=== PATIENT | female | born 1970 | race American Indian/Alaskan Native ===

== ENCOUNTER 2018-01-06 14:54 | Emergency (ER) | payer MEDICAID ==
[2018-01-06 15:14] VITALS: BMI 23.3
--- NOTE | 2018-01-06 15:34 | ED PDOC ---
Arrival/HPI - General Chief Complaint: Chest Pain Time Seen by Provider: 01/06/18 15:22 Historian: Patient - History of Present Illness Narrative History of Present Illness (Text): 01/06/18 15:26 A 47 year old female, whose past medical history includes hypertension, presents to the emergency department complaining of chest pain and elevated blood pressure beginning yesterday. Patient reports chest pain is localized "behind left breast". States she works in [employer] and lifts boxes, believing that may have caused chest pain. Patient denies any shortness of breath or any other complaints at this time. PMD: Dr. Richard Santos Past Medical History - Provider Review Nursing Documentation Reviewed: Yes - Cardiac Hx Cardiac Disorders: Yes Hx Hypertension: Yes - Pulmonary Hx Respiratory Disorders: Yes Hx Asthma: Yes - Psychiatric Hx Substance Use: No Family/Social History - Physician Review Nursing Documentation Reviewed: Yes Family/Social History: No Known Family HX Smoking Status: Never Smoked Hx Alcohol Use: No Hx Substance Use: No Allergies/Home Meds Allergies/Adverse Reactions: Allergies No Known Allergies Allergy (Verified 01/06/18 15:12) Home Medications: Home Meds Medication Instructions Recorded Confirmed amLODIPine [Norvasc] 2.5 mg PO DAILY 01/06/18 01/06/18 Review of Systems - Physician Review All systems were reviewed & negative as marked: Yes - Review of Systems Constitutional: absent: Fevers Respiratory: absent: SOB Cardiovascular: Chest Pain Physical Exam Vital Signs Reviewed: Yes Vital Signs Temp Pulse Resp BP Pulse Ox 01/06/18 17:12 72 17 156/94 H 99 01/06/18 17:10 98.2 F 74 18 158/94 H 98 01/06/18 15:16 98.4 F 79 18 166/100 H 100 01/06/18 15:13 78 17 169/109 H 100 Temperature: Afebrile Blood Pressure: Hypertensive Pulse: Regular Respiratory Rate: Normal Appearance: Positive for: Well-Appearing Pain Distress: None Mental Status: Positive for: Alert and Oriented X 3 - Systems Exam Head: Present: Atraumatic, Normocephalic Pupils: Present: PERRL Extroacular Muscles: Present: EOMI Conjunctiva: Present: Normal Mouth: Present: Moist Mucous Membranes Neck: Present: Normal Range of Motion Respiratory/Chest: Present: Clear to Auscultation, Good Air Exchange. No: Respiratory Distress, Accessory Muscle Use Cardiovascular: Present: Regular Rate and Rhythm, Normal S1, S2. No: Murmurs Abdomen: No: Tenderness, Distention, Peritoneal Signs Back: Present: Normal Inspection Upper Extremity: Present: Normal Inspection. No: Cyanosis, Edema Lower Extremity: Present: Normal Inspection. No: Edema Neurological: Present: GCS=15, CN II-XII Intact, Speech Normal Skin: Present: Warm, Dry, Normal Color. No: Rashes Psychiatric: Present: Alert, Oriented x 3, Normal Insight, Normal Concentration Medical Decision Making ED Course and Treatment: 01/06/18 15:30 Impression: 47 year old female with chest pain and elevated blood pressure. Physical exam is benign. atypical pain, pt herself states it "feels like msucle " Plan: -- EKG -- Chest X-ray -- Labs -- Urinalysis -- Reassess and disposition Progress Notes: EKG: Ordered, reviewed, and independently interpreted the EKG. Rate : 72 BPM Rhythm : NSR Interpretation : No ST-segment elevations or depressions, no T-wave inversions, normal intervals. Comparison : No previous EKG for comparison. 01/06/2018 16:32 Chest X-ray IMPRESSION: No active disease. Dictator: Jeramie Ware MD 01/06/18 20:52 pt refuses admission, atypical pain heart score low. pt asking for dc. - Lab Interpretations Microbiology Results: Microbiology Results 01/06/18 21:32 Urine,Clean Catch Urine Culture - Final No Growth (<1,000 CFU/ML) Lab Results: 01/06/18 15:30 01/06/18 15:30 Lab Results 01/06/18 15:30: Sodium 144, Potassium 4.1, Chloride 107, Carbon Dioxide 25, Anion Gap 16, BUN 13, Creatinine 0.7, Est GFR ( Amer) > 60, Est GFR (Non- Af Amer) > 60, Random Glucose 96, Calcium 9.7, Magnesium 1.9, Total Bilirubin 0.4, AST 41 H, ALT 47, Alkaline Phosphatase 75, Lactate Dehydrogenase 603, Total Creatine Kinase 182, Troponin I < 0.01, Total Protein 9.0 H, Albumin 4.6, Globulin 4.4, Albumin/Globulin Ratio 1.1 01/06/18 15:30: Urine Color Yellow, Urine Appearance Clear, Urine pH 6.0, Ur Specific [place] 1.010, Urine Protein Negative, Urine Glucose (UA) Negative, Urine Ketones Negative, Urine Blood Negative, Urine Nitrate Negative, Urine Bilirubin Negative, Urine Urobilinogen 0.2, Ur Leukocyte Esterase Small H, Urine RBC 0 - 2, Urine WBC 2 - 5, Ur Epithelial Cells 4 - 5, Urine Bacteria Few , Urine HCG, Qual Negative 01/06/18 15:30: PT 10.5, INR 0.92 L, APTT 28.1 01/06/18 15:30: WBC 5.5, RBC 4.52, Hgb 12.2, Hct 37.2, MCV 82.3, MCH 27.0, MCHC 32.8, RDW 12.7, Plt Count 224, MPV 8.3, Gran % 30.6 L, Lymph % (Auto) 54.6 H, Benson % (Auto) 7.1 H, Eos % (Auto) 7.3 H, Baso % (Auto) 0.4, Gran # 1.68, Lymph # (Auto) 3.0, Benson # (Auto) 0.4, Eos # (Auto) 0.4, Baso # (Auto) 0.02 I have reviewed the lab results: Yes - RAD Interpretation Radiology Orders: 01/06/18 15:30 CHEST PORTABLE [RAD] Stat - Medication Orders Current Medication Orders: Discontinued Medications Aspirin (Aspirin) 325 mg PO STAT STA Stop: 01/06/18 16:14 Last Admin: 01/06/18 16:44 Dose: 325 mg - Scribe Statement The provider has reviewed the documentation as recorded by the Samm Mayberry Provider Scribe Attestation: All medical record entries made by the Samm were at my direction and personally dictated by me. I have reviewed the chart and agree that the record accurately reflects my personal performance of the history, physical exam, medical decision making, and the department course for this patient. I have also personally directed, reviewed, and agree with the discharge instructions and disposition. Disposition/Present on Arrival - Present on Arrival Any Indicators Present on Arrival: No History of DVT/PE: No History of Uncontrolled Diabetes: No Urinary Catheter: No History of Decub. Ulcer: No History Surgical Site Infection Following: None - Disposition Have Diagnosis and Disposition been Completed?: Yes Diagnosis: Chest pain Disposition: HOME/ ROUTINE Disposition Time: 05:00 Condition: STABLE Discharge Instructions (ExitCare): Chest Pain, Chest Pain (ED) Additional Instructions: please follow up with your doctor. return to er with worsening symptoms or concerns. you are declining observation in the hospital, however you are able to return to er with any worsening symptoms or concerns. Referrals: [facility] [Outside] - Follow up with primary [facility] [Outside] - Follow up with primary [facility] [Outside] - Follow up with primary Vilma West MD [Staff Provider] - Follow up with primary Richard Santos Jr., MD [Primary Care Provider] - Follow up with primary Forms: [employer] (Hungarian)
[2018-01-06 16:01] LABS: BASO # 0.02 K/mm3 (0.0-2.0); BASO % 0.4 % (0.0-3.0); EOS # 0.4 (0.0-0.7); EOS % 7.3 % (1.5-5.0); GRAN # 1.68 (1.4-6.5); GRAN % 30.6 % (50.0-68.0); HEMOGLOBIN 12.2 g/dL (12.0-16.0); LYMPH % 54.6 % (22.0-35.0); MEAN CELL VOLUME 82.3 fl (80.0-105.0); MEAN CORPUSCULAR HGB CONC 32.8 g/dl (31.0-37.0); MEAN PLATELET VOLUME 8.3 fl (7.0-11.0); MONO # 0.4 (0.1-0.6); MONO % 7.1 % (1.0-6.0); RBC 4.52 10^6/uL (3.5-6.1); RED CELL DISTRIBUTION WIDTH 12.7 % (11.5-14.5); URINE BILIRUBIN NEGATIVE (NEGATIVE); URINE BLOOD NEGATIVE (NEGATIVE); URINE GLUCOSE (UA) NEGATIVE (NEGATIVE); URINE LEUKOCYTE ESTERASE SMALL Leu/uL (NEGATIVE); URINE PROTEIN NEGATIVE mg/dL (<30 mg/dL); URINE UROBILINOGEN 0.2 E.U./dL (<1 E.U./dL); WHITE BLOOD COUNT 5.5 10^3/ul (4.5-11.0)
[2018-01-06 16:04] LABS: URINE COLOR YELLOW (YELLOW)
[2018-01-06 16:05] LABS: URINE APPEARANCE CLEAR (CLEAR)
[2018-01-06 16:12] LABS: ALB/GLOB RATIO 1.1 (1.1-1.8); ALBUMIN 4.6 g/dL (3.0-4.8); ALT/SGPT 47 U/L (7-56); AST/SGOT 41 U/L (14-36); BLOOD UREA NITROGEN 13 mg/dL (7-21); CALCIUM 9.7 mg/dL (8.4-10.5); GFR AFRICAN-AMERICAN > 60; GFR NON-AFRICAN AMERICAN > 60
[2018-01-06 16:14] LABS: URINE RBC 0 - 2 /hpf (0-2)
[2018-01-06 16:15] LABS: HCG,QUALITATIVE URINE NEGATIVE (NEGATIVE); URINE BACTERIA FEW (NEG)
[2018-01-06 16:16] LABS: PROTHROMBIN TIME 10.5 SECONDS (9.4-12.5)
[2018-01-06 16:17] LABS: INR 0.92 (0.93-1.08); PARTIAL THROMBOPLASTIN TIME 28.1 Seconds (25.1-36.5)
[2018-01-06 16:23] LABS: TROPONIN I < 0.01 ng/mL
--- NOTE | 2018-01-06 16:34 | RAD ---
HISTORY: Chest pain. COMPARISON: No prior. FINDINGS: LUNGS: No active pulmonary disease. PLEURA: No significant pleural effusion identified, no pneumothorax apparent. CARDIOVASCULAR: No radiographic findings to suggest acute or significant cardiovascular disease. OSSEOUS STRUCTURES: No significant abnormalities. VISUALIZED UPPER ABDOMEN: Normal. OTHER FINDINGS: None. IMPRESSION: No active disease.
[2018-01-06 17:10] VITALS: TEMP 98.2
[2018-01-06 17:26] VITALS: BP 156/94; PULSE 72; RESP 17; O2SAT 99
--- NOTE | 2018-01-07 09:04 | CARD ---
APPROVED REPORT EKG Measurement Heart [id number] CT 148P75 [id number] <Conclusion> Normal sinus rhythm Voltage criteria for left ventricular hypertrophy J-point elevations 2,3,F, V 5, 6 c/w early repolarization
== END 2018-01-06 17:12 | disposition home or self-care (01) ==
LOC: ED 14:54
DX: R07.9 Chest pain, unspecified (principal); I10 Essential (primary) hypertension

== ENCOUNTER 2018-11-12 12:40 | Emergency (ER) | payer MEDICAID ==
[2018-11-12 12:40] VITALS: BMI 23.3
[2018-11-12 12:54] VITALS: RESP 18; TEMP 99.2
--- NOTE | 2018-11-12 13:14 | ED PDOC ---
Arrival/HPI - General Chief Complaint: Back Pain Historian: Patient - History of Present Illness Narrative History of Present Illness (Text): 11/12/18 13:11 48 y/o female, pmh including htn, nkda, post menopausal, c/o rt. lower back pain x 2 days with no fall or trauma. Pt. 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 Past Medical History - Provider Review Nursing Documentation Reviewed: Yes - Infectious Disease Hx of Infectious Diseases: None - Reproductive Menopause: Yes - Cardiac Hx Cardiac Disorders: Yes Hx Hypertension: Yes - Pulmonary Hx Respiratory Disorders: Yes Hx Asthma: Yes - Psychiatric Hx Substance Use: No Family/Social History - Physician Review Nursing Documentation Reviewed: Yes Family/Social History: Unknown Family HX Smoking Status: Never Smoked Hx Alcohol Use: No Hx Substance Use: No Allergies/Home Meds Allergies/Adverse Reactions: Allergies No Known Allergies Allergy (Verified 01/06/18 15:12) Home Medications: Home Meds Medication Instructions Recorded Confirmed amLODIPine [Norvasc] 2.5 mg PO DAILY 01/06/18 01/06/18 Review of Systems - Review of Systems Constitutional: absent: Fatigue, Fevers Eyes: absent: Vision Changes ENT: absent: Hearing Changes Respiratory: absent: SOB, Cough Cardiovascular: absent: Chest Pain Gastrointestinal: absent: Abdominal Pain, Nausea, Vomiting Musculoskeletal: Back Pain. absent: Arthralgias, Neck Pain, Joint Swelling, Myalgias Skin: absent: Rash, Pruritis Neurological: absent: Headache, Dizziness Psychiatric: absent: Anxiety, Depression, Suicidal Ideation Physical Exam Vital Signs Reviewed: Yes Vital Signs Temp Pulse Resp BP Pulse Ox 11/12/18 12:50 99.2 F 92 H 18 140/72 99 Temperature: Afebrile Blood Pressure: Normal Pulse: Regular Respiratory Rate: Normal Appearance: Positive for: Well-Appearing, Non-Toxic, Comfortable Pain Distress: Moderate Mental Status: Positive for: Alert and Oriented X 3 - Systems Exam Head: Present: Atraumatic, Normocephalic Pupils: Present: PERRL Extroacular Muscles: Present: EOMI Conjunctiva: Present: Normal Mouth: Present: Moist Mucous Membranes Neck: Present: Normal Range of Motion Respiratory/Chest: Present: Clear to Auscultation, Good Air Exchange. No: Respiratory Distress, Accessory Muscle Use Cardiovascular: Present: Regular Rate and Rhythm, Normal S1, S2. No: Murmurs Abdomen: No: Tenderness, Distention, Peritoneal Signs Back: Present: Normal Inspection, Other (LS spine: +ttp on the rt. paraspinal muscle region, no midline tenderness or step off, no cva tenderness, no rash, FROM without limitation, sensation intact, motor 5/5, no saddling gait. ). No: CVA Tenderness, Midline Tenderness, Pain with Leg Raise, Decubitus Ulcer Upper Extremity: Present: Normal Inspection. No: Cyanosis, Edema Lower Extremity: Present: Normal Inspection. No: Edema Neurological: Present: GCS=15, CN II-XII Intact, Speech Normal Skin: Present: Warm, Dry, Normal Color. No: Rashes Psychiatric: Present: Alert, Oriented x 3, Normal Insight, Normal Concentration Medical Decision Making ED Course and Treatment: 11/12/18 13:13 -ua -xray -toradol IM -observe and reassess 11/12/18 17:15 -Urine hcg is negative -UA show mild UTI. -Xray Unremarkable radiographs of the lumbar spine. -Pt. feels much better after the medication, request to be discharged home which I explained about the results. -Discharge home with macrobid, motrin, flexeril, bed rest, follow up with your own pmd and orthopedic within 2 days, return to the er for any new or worsening signs or symptoms. - RAD Interpretation Radiology Orders: 11/12/18 13:10 LS SPINE WITH OBL > 18 YRS OLD [RAD] Stat Date of service: 11/12/2018 PROCEDURE: Radiographs of the Lumbar Spine. HISTORY: rt. lower back pain COMPARISON: No prior. TECHNIQUE: 5 views obtained. FINDINGS: BONES: Normal alignment. No listhesis. No fracture. DISC SPACES: Unremarkable. OTHER FINDINGS: None. IMPRESSION: Unremarkable radiographs of the lumbar spine. Grating Machine Operator: Radiologist - Medication Orders Current Medication Orders: Ketorolac Tromethamine (Toradol) 60 mg IM STAT STA Stop: 11/12/18 13:11 - PA / PROOF COINS INSPECTOR / Resident Statement MD/DO has reviewed & agrees with the documentation as recorded. Disposition/Present on Arrival - Present on Arrival Any Indicators Present on Arrival: No History of DVT/PE: No History of Uncontrolled Diabetes: No Urinary Catheter: No History of Decub. Ulcer: No History Surgical Site Infection Following: None - Disposition Have Diagnosis and Disposition been Completed?: Yes Diagnosis: Low back pain, UTI (urinary tract infection) Disposition: HOME/ ROUTINE Disposition Time: 16:24 Patient Plan: Discharge Patient Problems: Current Active Problems Problem Status Onset Low back pain Acute Condition: GOOD Additional Instructions: -Discharge home with macrobid, motrin, flexeril, bed rest, follow up with your own pmd and orthopedic within 2 days, return to the er for any new or worsening signs or symptoms. Prescriptions: Cyclobenzaprine [Cyclobenzaprine HCl] 10 mg PO TID PRN #21 tab PRN Reason: Other Ibuprofen [Motrin Tab] 600 mg PO QID #30 tab Nitrofurantoin Macrocrystals [Macrobid] 100 mg PO BID #14 cap Referrals: Richard Santos Jr., MD [Primary Care Provider] - Follow up with primary Tal Guzman MD [Staff Provider] - Follow up with primary Forms: [employer] (Belarusian), WORK NOTE
--- NOTE | 2018-11-12 14:49 | RAD ---
Date of service: 11/12/2018 PROCEDURE: Radiographs of the Lumbar Spine. HISTORY: rt. lower back pain COMPARISON: No prior. TECHNIQUE: 5 views obtained. FINDINGS: BONES: Normal alignment. No listhesis. No fracture. DISC SPACES: Unremarkable. OTHER FINDINGS: None. IMPRESSION: Unremarkable radiographs of the lumbar spine.
[2018-11-12 16:17] LABS: PH,URINE 5.5 (4.7-8.0); URINE BILIRUBIN NEGATIVE (NEGATIVE); URINE BLOOD NEGATIVE (NEGATIVE); URINE GLUCOSE (UA) NEGATIVE (NEGATIVE); URINE LEUKOCYTE ESTERASE SMALL Leu/uL (NEGATIVE); URINE PROTEIN NEGATIVE mg/dL (<30 mg/dL); URINE UROBILINOGEN 0.2 E.U./dL (<1 E.U./dL)
[2018-11-12 16:29] LABS: URINE APPEARANCE CLEAR (CLEAR); URINE COLOR YELLOW (YELLOW)
[2018-11-12 16:30] LABS: HCG,QUALITATIVE URINE NEGATIVE (NEGATIVE)
[2018-11-12 17:21] VITALS: BP 106/67; PULSE 72; O2SAT 96
== END 2018-11-12 17:38 | disposition home or self-care (01) ==
LOC: ED 12:40
DX: N39.0 Urinary tract infection, site not specified (principal); M54.5 Low back pain; I10 Essential (primary) hypertension
CPT/HCPCS: 72110; 81001; 81025; 84703; 87086; 96372; 99283; J1885